=== PATIENT | female | born 1955 | race Caucasian/White ===

== ENCOUNTER 2021-04-05 21:09 | Emergency (ER) | payer OTHER ==
[~2021-04-05] VITALS: Ht 154.9 cm; Wt 77.1 kg
[~2021-04-05 21:09] MED LIST: GLU500 PO; GLYB2.5T10 PO
[2021-04-05 21:19] VITALS: BP 149/74
--- NOTE | 2021-04-05 21:21 | NUR ---
TO LOBBY A/W BED AMBULATORY
--- NOTE | 2021-04-05 22:21 | NUR ---
Dr. Watson with pt for MSE.
[2021-04-05 22:38] VITALS: BP 149/74
[2021-04-05 22:55] LABS: BASOPHILS % (AUTO) 0.3 % (0.0-2.0); EOSINOPHILS # (AUTO) 0.1 K/uL (0-0.4); EOSINOPHILS % (AUTO) 0.9 % (0.0-4.0); HEMATOCRIT 39.5 % (36-48); HEMOGLOBIN 13.1 g/dL (12.0-16.0); LYMPHOCYTES # (AUTO) 2.8 K/uL (2.5-16.5); LYMPHOCYTES % (AUTO) 29.1 % (20.5-51.1); MEAN CORPUSCULAR HEMOGLOBIN 27 pg (27-31); MEAN CORPUSCULAR HGB CONC 33 g/dL (33-37); MEAN CORPUSCULAR VOLUME 80.4 fL (80-94); MONOCYTES # (AUTO) 0.5 K/uL (0.8-1.0); NEUTROPHILS # (AUTO) 6.1 K/uL (1.8-7.7); NEUTROPHILS % (AUTO) 64.7 % (42.2-75.2); PLATELET COUNT (AUTO) 319 K/uL (140-450); RED BLOOD CELL COUNT(AUTO) 4.92 MIL/uL (4.20-5.40); RED CELL DISTRIBUTION WIDTH 15.3 % (11.6-13.7); WHITE BLOOD COUNT (AUTO) 9.5 K/uL (4.8-10.8)
--- NOTE | 2021-04-05 23:00 | NUR ---
see complete assessment.
[2021-04-05 23:18] LABS: ALBUMIN 3.6 g/dL (3.4-5.0); ANION GAP 11.2 (8-16); CARBON DIOXIDE 26.9 mmol/L (21-32); CREATININE 0.7 mg/dL (0.6-1.3); POTASSIUM 4.1 mmol/L (3.5-5.1); THYROID STIMULATING HORMONE 0.98 uIU/mL (0.34-3.74); TOTAL BILIRUBIN 0.3 mg/dL (0.0-1.0)
[2021-04-05] MEDS ORDERED: ACETAMINOPHEN 325 MG TAB PO ONE (23:20)
[2021-04-06] MEDS ORDERED: GABA-640 PO (00:13)
[2021-04-06] MEDS ORDERED: LANC-947 TP (00:13)
[2021-04-06] MEDS ORDERED: BLOO-697 MC (00:13)
--- NOTE | 2021-04-06 00:33 | NUR ---
d/c with VSS. d/c education given. opportunity to ask questions given and answered.
== END 2021-04-06 00:34 | disposition home or self-care (01) ==
LOC: MED 21:09
DX: M79.601 Pain in right arm (principal); M79.602 Pain in left arm; R07.9 Chest pain, unspecified; E11.9 Type 2 diabetes mellitus without complications; G90.09 Other idiopathic peripheral autonomic neuropathy; Z79.899 Other long term (current) drug therapy
CPT/HCPCS: 71045; 80053; 84443; 84484; 85025; 93005; 99285

== ENCOUNTER 2024-01-17 20:00 | Emergency (ER) | payer OTHER ==
[~2024-01-17] VITALS: Ht 157.5 cm; Wt 74.8 kg
[~2024-01-17 20:00] MED LIST changes: +BLOO-697 MC; +GABA-641 PO; +LANC-947 TP
[2024-01-17 20:10] VITALS: BP 121/91; PULSE 110; RESP 18; TEMP 97.1; O2SAT 97
[2024-01-17] MEDS ORDERED: HYDROcodone/APAP 5/325 MG 1 TAB TAB PO ONE (23:05)
[2024-01-17] MEDS: IBUPROFEN 800 MG TAB PO ONE (23:14)
[2024-01-17] MEDS ORDERED: HYDR-5191 PO (23:58)
[2024-01-17] MEDS ORDERED: IBUP-2218 PO (23:58)
[2024-01-18 00:22] VITALS: BP 117/62; PULSE 89; RESP 14; TEMP 97.1; O2SAT 100
== END 2024-01-18 00:23 | disposition home or self-care (01) ==
LOC: MED 20:00
DX: S62.332A Displaced fracture of neck of third metacarpal bone, right hand, initial encounter for closed fracture (principal); S62.334A Displaced fracture of neck of fourth metacarpal bone, right hand, initial encounter for closed fracture; S62.336A Displaced fracture of neck of fifth metacarpal bone, right hand, initial encounter for closed fracture; S62.333A Displaced fracture of neck of third metacarpal bone, left hand, initial encounter for closed fracture; S62.335A Displaced fracture of neck of fourth metacarpal bone, left hand, initial encounter for closed fracture; S62.337A Displaced fracture of neck of fifth metacarpal bone, left hand, initial encounter for closed fracture; S82.291A Other fracture of shaft of right tibia, initial encounter for closed fracture; S82.491A Other fracture of shaft of right fibula, initial encounter for closed fracture; Z79.899 Other long term (current) drug therapy; W18.30XA Fall on same level, unspecified, initial encounter; Y93.89 Activity, other specified; Y92.89 Other specified places as the place of occurrence of the external cause; Y99.8 Other external cause status
CPT/HCPCS: 29505; 73590; 73630; 99284